=== PATIENT | female | born 1975 | race African-American/Black ===

== ENCOUNTER 2017-08-07 14:34 | Inpatient (IN) ==
[2017-08-07] MEDS ORDERED: LACTATED RINGERS 500 ML IV STA (14:43)
[2017-08-07] MEDS ORDERED: ONDANSETRON 4 MG/2 ML VIAL IV STA ×2 (14:43→16:38)
[2017-08-07] MEDS ORDERED: HYDROmorphone 2 MG/1 ML VIAL IV STA ×2 (14:43→16:38)
[2017-08-07] MEDS ORDERED: HYDROmorphone 2 MG/1 ML VIAL ONE (14:55)
[2017-08-07] MEDS ORDERED: ONDANSETRON 4 MG/2 ML VIAL ONE ×2 (14:55→16:40)
[2017-08-07 15:15] LABS: Basophils # 0.1 10*3/uL (0.0-0.2); Basophils % 0.2 % (0.0-0.8); Eosinophils % 0.1 % (0.00-10.9); Hematocrit 31.8 VOL% (35.7-47.0); Immature Granulocytes Absolute 0.24 #; Lymphocytes # 2.4 10*3/uL (1.4-4.0); Lymphocytes % 10.1 % (21.3-54.2); Mean Corpuscular HGB Conc 34.6 GM/DL (32-36); Mean Corpuscular Hemoglobin 31 PG (27-34); Mean Corpuscular Volume 88.3 FL (87-102); Mean Platelet Volume 10.1 FL (9.6-12.0); Monocytes # 1.8 10*3/uL (0.11-0.8); Monocytes % 7.4 % (1.7-12.7); Neutrophils # 19.3 10*3/uL (1.4-7.4); Neutrophils % 81.2 % (38.7-73.9); Platelet Count 451 T/CUMM (130-400); Red Cell Distribution Width 14.1 % (9.3-17.3); White Blood Count 23.8 T/CUMM (4-12)
[2017-08-07 15:20] LABS: Apearance,Urine Slightly Hazy (Clear); Bacteria,Urine Occasional /HPF (Few); Bilirubin,Urine Negative (Negative); Blood, Urine Moderate mg/dL (Negative); Glucose,Urine (UA) Negative (Negative); Hyaline Casts,Urine 3 /LPF (0-3); Ketones,Urine Negative (Negative); Mucus,Urine Few /LPF (Occasional); Nitrite,Urine Negative (Negative); Protein,Urine 100 MG/DL; RBC,Urine 20 /HPF (0-4); Squamous Epithelial Cell,Urine Occasional /HPF (0-10); Urine Color Yellow (Yellow); Urine Specific Gravity 1.012 (1.001-1.035); Urine Urobilinogen < 2.0 EU/DL (0.2-1.0); WBC,Urine 4 /HPF (0-6)
[2017-08-07 15:23] LABS: Barbiturates Screen,Urine Negative (Negative); Benzodiazepines Screen,Urine Positive (Negative); Cannabinoid Screen,Urine Negative (Negative); Opiate Screen,Urine Positive (Negative); Phencyclidine Screen,Urine Negative (Negative)
[2017-08-07 15:26] LABS: PT Patient Result 10.7 SECS; Partial Thromboplastin Time 21.9 SECS (0-40)
[2017-08-07] MEDS ORDERED: CLINDAMYCIN INJ 900 MG in PREMIX 1 EACH IV STA (15:28)
[2017-08-07 15:34] LABS: Lactic Acid 1.5 MMOL/L (0.4-2.0)
[2017-08-07 15:35] LABS: Alanine Aminotransferase 45 U/L (13-56); Albumin 3.7 G/DL (3.4-5.0); Alkaline Phosphatase 102 U/L (45-117); Amylase 92 U/L (25-115); Aspartate Amino Transferase 61 U/L (0-37); Blood Urea Nitrogen 9 MG/DL (7-18); Calcium 8.9 MG/DL (8.5-10.1); Glucose 143 MG/DL (74-106); Osmolality,Calculated 275.7 MOS/KG (273-304); Sodium 138 MMOL/L (136-145)
[2017-08-07] MEDS ORDERED: CLINDAMYCIN INJ 50 ML IV ONE (15:35)
[2017-08-07 15:36] LABS: CKMB % 1.3 %; Troponin I Only < 0.015 NG/ML (0.00-0.045)
[2017-08-07 16:13] LABS: Band Neutrophils 3 % (0-10); Lymphocytes 13 % (20-55); Segmented Neutrophils 79 % (50-85)
[2017-08-07 16:14] LABS: Platelet Estimate Normal; Total Cells Counted 100
[2017-08-07] MEDS ORDERED: ALUMINUM/MAGNES/SIMETH MAX STR 30 ML UDCUP PO PRN (16:57)
[2017-08-07] MEDS ORDERED: ACETAMINOPHEN 325 MG TABLET PO PRN (16:57)
[2017-08-07] MEDS ORDERED: NALOXONE 0.4 MG/ML VIAL IV PRN (17:09)
[2017-08-07 17:38] LABS: ABG Base Excess 0.2 MMOL/L (-2.5-2.5); ABG HCO3 24.5 MMOL/L (20-26); ABG Oxygen Saturation 91.1 % (95-100); ABG PH 7.354 (7.35-7.45); ABG PO2 67.5 MM HG (80-95); ABG TCO2 23.9 MMOL/L (23-27)
[2017-08-07] MEDS: DEXTROSE 5% LACTATED RINGERS 1,000 ML IV SCH (20:02)
[2017-08-07] MEDS: LEVOFLOXACIN INJ 750 MG in PREMIX 1 EACH IV SCH (20:03)
[2017-08-07] MEDS: HYDROmorphone PCA 30 MG/30 ML SYRINGE IV SCH (20:04)
[2017-08-07] MEDS: KETOROLAC 15 MG/1 ML VIAL IV SCH (20:04)
[2017-08-07] MEDS: DOCUSATE SODIUM 100 MG CAPSULE PO SCH (20:18)
[2017-08-08] MEDS: KETOROLAC 15 MG/1 ML VIAL IV SCH ×4 (01:49→20:17)
[2017-08-08] MEDS: DEXTROSE 5% LACTATED RINGERS 1,000 ML IV SCH ×4 (01:49→18:05)
[2017-08-08 04:08] LABS: ABG Base Excess 1.7 MMOL/L (-2.5-2.5); ABG HCO3 25.9 MMOL/L (20-26); ABG PO2 70.8 MM HG (80-95); ABG TCO2 25.5 MMOL/L (23-27); Allen Test Positive; Pt O2 Delivery Device Room Air
[2017-08-08 05:51] LABS: Basophils % 0.3 % (0.0-0.8); Eosinophils # 0.1 10*3/uL (0.0-0.87); Eosinophils % 0.8 % (0.00-10.9); Hemoglobin 9.7 GM/DL (12.0-16.0); Immature Granulocytes % 0.5 %; Immature Granulocytes Absolute 0.04 #; Lymphocytes # 1.4 10*3/uL (1.4-4.0); Lymphocytes % 16.4 % (21.3-54.2); Mean Corpuscular HGB Conc 33.4 GM/DL (32-36); Mean Corpuscular Hemoglobin 30 PG (27-34); Mean Corpuscular Volume 90.6 FL (87-102); Mean Platelet Volume 9.8 FL (9.6-12.0); Monocytes # 0.9 10*3/uL (0.11-0.8); Monocytes % 10.3 % (1.7-12.7); Neutrophils # 6.2 10*3/uL (1.4-7.4); Neutrophils % 71.7 % (38.7-73.9); Platelet Count 335 T/CUMM (130-400); Red Cell Distribution Width 14.3 % (9.3-17.3); White Blood Count 8.7 T/CUMM (4-12)
[2017-08-08 06:06] LABS: Apearance,Urine Slightly Hazy (Clear); Bilirubin,Urine Negative (Negative); Blood, Urine Small mg/dL (Negative); Glucose,Urine (UA) Negative (Negative); Ketones,Urine Negative (Negative); Mucus,Urine Many /LPF (Occasional); Nitrite,Urine Negative (Negative); Protein,Urine Negative; RBC,Urine 16 /HPF (0-4); Squamous Epithelial Cell,Urine Occasional /HPF (0-10); Urine Color Yellow (Yellow); Urine Specific Gravity 1.035 (1.001-1.035); Urine Urobilinogen < 2.0 EU/DL (0.2-1.0); WBC,Urine 4 /HPF (0-6)
[2017-08-08 06:35] LABS: Albumin 2.9 G/DL (3.4-5.0); Bilirubin,Total 0.8 MG/DL (0.2-1.0); Calcium 8.2 MG/DL (8.5-10.1); Osmolality,Calculated 275.5 MOS/KG (273-304); Potassium 3.5 MMOL/L (3.5-5.1)
[2017-08-08] MEDS: PANTOPRAZOLE 40 MG VIAL IV SCH (09:02)
[2017-08-08] MEDS: DOCUSATE SODIUM 100 MG CAPSULE PO SCH ×2 (09:03→20:18)
[2017-08-08] MEDS: HYDROmorphone PCA 30 MG/30 ML SYRINGE IV SCH ×3 (10:22→21:55)
[2017-08-08] MEDS ORDERED: BUPIVACAINE 0.25% /EPI 10 ML VIAL ONE (10:42)
[2017-08-08] MEDS ORDERED: ROPIVACAINE 0.5% 30 ML VIAL ONE (10:42)
[2017-08-08] MEDS ORDERED: DEXAMETHASONE 4 MG/1 ML VIAL ONE (10:47)
[2017-08-08] MEDS ORDERED: CLINDAMYCIN 600 MG/4 ML VIAL ONE (11:38)
[2017-08-08] MEDS ORDERED: PROPOFOL 200 MG/20 ML VIAL IV ONE (12:47)
[2017-08-08] MEDS ORDERED: ONDANSETRON 4 MG/2 ML VIAL ONE (12:48)
[2017-08-08] MEDS ORDERED: fentaNYL 100 MCG/2 ML VIAL ONE (12:48)
[2017-08-08] MEDS ORDERED: SODIUM CHLORIDE 0.9% 100 ML IV ONE (12:48)
[2017-08-08] MEDS ORDERED: MIDAZOLAM 2 MG/2 ML VIAL ONE (12:48)
[2017-08-08] MEDS ORDERED: HYDROmorphone 2 MG/1 ML VIAL IV PRN (12:57)
[2017-08-08] MEDS ORDERED: ONDANSETRON 4 MG/2 ML VIAL IV PRN (12:57)
[2017-08-08] MEDS: LEVOFLOXACIN INJ 750 MG in PREMIX 1 EACH IV SCH (20:17)
[2017-08-09] MEDS: DEXTROSE 5% LACTATED RINGERS 1,000 ML IV SCH ×2 (00:41→08:38)
[2017-08-09] MEDS: KETOROLAC 15 MG/1 ML VIAL IV SCH ×4 (01:13→20:28)
[2017-08-09 04:01] LABS: ABG Base Excess 4.5 MMOL/L (-2.5-2.5); ABG HCO3 30.1 MMOL/L (20-26); ABG Oxygen Saturation 98.5 % (95-100); ABG PCO2 50.2 MM HG (35-48); ABG PH 7.396 (7.35-7.45); ABG TCO2 31.7 MMOL/L (23-27); Allen Test Positive
[2017-08-09 06:03] LABS: Basophils % 0.1 % (0.0-0.8); Eosinophils # 0.1 10*3/uL (0.0-0.87); Eosinophils % 0.7 % (0.00-10.9); Hematocrit 26.2 VOL% (35.7-47.0); Hemoglobin 8.8 GM/DL (12.0-16.0); Immature Granulocytes % 0.4 %; Immature Granulocytes Absolute 0.05 #; Lymphocytes # 1.2 10*3/uL (1.4-4.0); Lymphocytes % 9.9 % (21.3-54.2); Mean Corpuscular HGB Conc 33.6 GM/DL (32-36); Mean Corpuscular Hemoglobin 30 PG (27-34); Mean Corpuscular Volume 90.7 FL (87-102); Mean Platelet Volume 10.3 FL (9.6-12.0); Monocytes # 0.8 10*3/uL (0.11-0.8); Monocytes % 6.1 % (1.7-12.7); Neutrophils # 10.2 10*3/uL (1.4-7.4); Neutrophils % 82.8 % (38.7-73.9); Platelet Count 327 T/CUMM (130-400); Red Blood Count 2.89 MC/CUMM (3.8-5.5); Red Cell Distribution Width 14.2 % (9.3-17.3); White Blood Count 12.3 T/CUMM (4-12)
[2017-08-09 06:42] LABS: Albumin 2.7 G/DL (3.4-5.0); Bilirubin,Total 0.4 MG/DL (0.2-1.0); Calcium 8.2 MG/DL (8.5-10.1); Osmolality,Calculated 274.5 MOS/KG (273-304); Potassium 3.5 MMOL/L (3.5-5.1); Total Protein 5.7 G/DL (6.4-8.3)
[2017-08-09] MEDS: ONDANSETRON 4 MG/2 ML VIAL IV PRN ×3 (07:29→20:24)
[2017-08-09] MEDS: PANTOPRAZOLE 40 MG VIAL IV SCH (08:18)
[2017-08-09] MEDS: DOCUSATE SODIUM 100 MG CAPSULE PO SCH ×3 (08:18→20:24)
[2017-08-09] MEDS ORDERED: INFLUENZA VIRUS VACCINE 0.5 ML SYRINGE IM ONE (09:00)
[2017-08-09] MEDS ORDERED: PNEUMOCOCCAL VACCINE (23 VALENT) 0.5 ML VIAL IM ONE (09:00)
[2017-08-09] MEDS: HYDROmorphone PCA 30 MG/30 ML SYRINGE IV SCH (20:31)
[2017-08-09] MEDS: LEVOFLOXACIN INJ 750 MG in PREMIX 1 EACH IV SCH (20:34)
[2017-08-10] MEDS: KETOROLAC 15 MG/1 ML VIAL IV SCH ×4 (02:49→20:49)
[2017-08-10] MEDS: ONDANSETRON 4 MG/2 ML VIAL IV PRN ×2 (02:52→08:42)
[2017-08-10] MEDS: PANTOPRAZOLE 40 MG VIAL IV SCH (08:43)
[2017-08-10] MEDS: DOCUSATE SODIUM 100 MG CAPSULE PO SCH ×2 (08:43→20:49)
[2017-08-10] MEDS ORDERED: PROMETHAZINE 25 MG TABLET PO PRN (08:54)
[2017-08-10] MEDS: HYDROmorphone PCA 30 MG/30 ML SYRINGE IV SCH (20:48)
[2017-08-10] MEDS: LEVOFLOXACIN INJ 750 MG in PREMIX 1 EACH IV SCH (20:49)
[2017-08-11] MEDS: KETOROLAC 15 MG/1 ML VIAL IV SCH ×4 (02:52→20:07)
[2017-08-11] MEDS: PANTOPRAZOLE 40 MG VIAL IV SCH (08:06)
[2017-08-11] MEDS: DOCUSATE SODIUM 100 MG CAPSULE PO SCH ×2 (08:06→20:07)
[2017-08-11] MEDS: HYDROmorphone PCA 30 MG/30 ML SYRINGE IV SCH (10:09)
[2017-08-11] MEDS ORDERED: ENOXAPARIN 40 MG/0.4 ML SYRINGE SUBCUT ONE (11:01)
[2017-08-11] MEDS: ENOXAPARIN 40 MG/0.4 ML SYRINGE SUBCUT SCH (11:44)
[2017-08-11] MEDS: HYDROmorphone 2 MG/1 ML VIAL IV PRN ×2 (16:19→20:09)
[2017-08-12] MEDS: KETOROLAC 15 MG/1 ML VIAL IV SCH ×2 (01:56→08:03)
[2017-08-12] MEDS: HYDROmorphone 2 MG/1 ML VIAL IV PRN (02:00)
[2017-08-12 04:29] LABS: Basophils # 0.1 10*3/uL (0.0-0.2); Basophils % 0.7 % (0.0-0.8); Eosinophils # 0.6 10*3/uL (0.0-0.87); Eosinophils % 5.6 % (0.00-10.9); Hematocrit 27.2 VOL% (35.7-47.0); Hemoglobin 9.3 GM/DL (12.0-16.0); Immature Granulocytes % 0.9 %; Immature Granulocytes Absolute 0.09 #; Lymphocytes # 2.4 10*3/uL (1.4-4.0); Lymphocytes % 23.1 % (21.3-54.2); Mean Corpuscular HGB Conc 34.2 GM/DL (32-36); Mean Corpuscular Hemoglobin 30 PG (27-34); Mean Platelet Volume 9.6 FL (9.6-12.0); Monocytes # 0.8 10*3/uL (0.11-0.8); Monocytes % 7.7 % (1.7-12.7); Neutrophils # 6.5 10*3/uL (1.4-7.4); Platelet Count 372 T/CUMM (130-400); Red Blood Count 3.09 MC/CUMM (3.8-5.5); White Blood Count 10.5 T/CUMM (4-12)
[2017-08-12 05:10] LABS: Albumin 2.6 G/DL (3.4-5.0); Bilirubin,Total 0.5 MG/DL (0.2-1.0); Calcium 8.1 MG/DL (8.5-10.1); Osmolality,Calculated 271.7 MOS/KG (273-304); Potassium 3.5 MMOL/L (3.5-5.1); Total Protein 5.4 G/DL (6.4-8.3)
[2017-08-12] MEDS: PANTOPRAZOLE 40 MG VIAL IV SCH (08:00)
[2017-08-12] MEDS: DOCUSATE SODIUM 100 MG CAPSULE PO SCH (08:01)
[2017-08-12 10:51] VITALS: BP 121/74
[2017-08-12] MEDS: ENOXAPARIN 40 MG/0.4 ML SYRINGE SUBCUT SCH (11:37)
== END 2017-08-12 11:55 | disposition home health service (06) | DRG 958 ==
LOC: EDBD → EDUNIT# → N.ED 14:34 → N.EDINP 16:57 → N.CC 18:48 → N.3E 08-09 13:15
PROVIDERS: ADMIT Specialist; ATTEND Specialist